=== PATIENT | female | born 1965 | race American Indian/Alaskan Native ===

== ENCOUNTER 2017-09-13 23:25 | Emergency (ER) | payer BC ==
[2017-09-14 00:18] LABS: Basophils % (Auto) 0.7 % (0.0-1.8); Eosinophils # (Auto) 0.2 K/mm3 (0.0-0.4); Eosinophils % (Auto) 4.2 % (0.0-4.3); Hematocrit 40.2 % (30.3-42.9); Hemoglobin 13.8 gm/dl (10.1-14.3); Lymphocytes # (Auto) 1.5 K/mm3 (1.2-5.4); Mean Corpuscular HGB Conc 34 % (30-34); Mean Corpuscular Hemoglobin 30 pg (28-32); Mean Corpuscular Volume 87 fl (79-97); Monocytes # (Auto) 0.5 K/mm3 (0.0-0.8); Monocytes % (Auto) 11.1 % (0.0-7.3); Platelet Count 211 K/mm3 (140-440); Red Blood Count 4.59 M/mm3 (3.65-5.03); Red Cell Distribution Width 13.2 % (13.2-15.2)
[2017-09-14] MEDS ORDERED: BENADRYL IV ONE (00:26)
[2017-09-14] MEDS ORDERED: TORADOL IV ONE (00:27)
[2017-09-14 00:32] LABS: Alanine Aminotransferase 16 units/L (7-56); Albumin 4.3 g/dL (3.9-5); BUN/Creatinine Ratio 15; Blood Urea Nitrogen 15 mg/dL (7-17); Calcium 9.3 mg/dL (8.4-10.2); Hemolysis Index 9
--- NOTE | 2017-09-14 00:33 | Emergency Department Report ---
ED Altered Mental Status HPI - General Chief Complaint: Altered Mental Status Stated Complaint: STROKE SX Time Seen by Provider: 09/14/17 00:08 Source: patient Mode of arrival: Ambulatory Limitations: No Limitations - History of Present Illness Initial Comments: PT. APPARENTLY HAD TAKEN AT 4 PM SOME OXYCODONE AND SHE WAS HALLUCINATING AND SO WAS BROUGHT TO THE ER. HER SAID THE SAME SIMILAR STUFF HAPPENED ABOUT 2-3 YEARS AGO AND WAS DUE TO OXYCODONE.SHE IS BACK TO BASELINE. SHE TOOK THE OXYCONE DUE TO HEADACHE AND SHE SAYS THE HEADACHE IS FRONTAL IN LOCATION , NON RADIATING WITH AGGRAV. WITH NOISE AND LIGHT AND NO RELIEVING FACTOR. PT. SAYS SHE GETS HEADACHE A LOT ALMOST WEEKLY MD Complaint: altered mental status -: Gradual Severity: moderate Consistency of Symptoms: constant Associated Symptoms: denies other symptoms - Related Data Home Medications Medication Instructions Recorded Confirmed Last Taken No Known Home Medications [No 09/13/17 09/13/17 Unknown Reported Home Medications] Allergies Allergy/AdvReac Type Severity Reaction Status Date / Time oxycodone AdvReac Unknown Verified 09/13/17 23:52 ED Review of Systems ROS: Stated complaint: STROKE SX Other details as noted in HPI Comment: All other systems reviewed and negative ED Past Medical Hx - Past Medical History Hx Hypertension: Yes Hx CVA: Yes - Surgical History Past Surgical History?: No - Social History Smoking Status: Never Smoker Substance Use Type: None - Medications Home Medications: Home Medications Medication Instructions Recorded Confirmed Last Taken Type No Known Home Medications [No 09/13/17 09/13/17 Unknown History Reported Home Medications] ED Physical Exam - General Limitations: No Limitations General appearance: alert, in no apparent distress - Head Head exam: Present: atraumatic, normocephalic - Eye Eye exam: Present: normal appearance - ENT ENT exam: Present: mucous membranes moist - Neck Neck exam: Present: normal inspection - Respiratory Respiratory exam: Present: normal lung sounds bilaterally. Absent: respiratory distress - Cardiovascular Cardiovascular Exam: Present: regular rate, normal rhythm. Absent: systolic murmur, diastolic murmur, rubs, gallop - GI/Abdominal GI/Abdominal exam: Present: soft, normal bowel sounds - Rectal Rectal exam: Present: deferred - Extremities Exam Extremities exam: Present: normal inspection - Back Exam Back exam: Present: normal inspection, full ROM - Neurological Exam Neurological exam: Present: alert, oriented X3 - Psychiatric Psychiatric exam: Present: normal affect, normal mood - Skin Skin exam: Present: warm, dry, intact, normal color. Absent: rash ED Course Vital Signs 09/13/17 09/14/17 09/14/17 23:43 00:29 01:11 Temperature 98 F Pulse Rate 87 77 Respiratory 18 16 16 Rate Blood Pressure 190/109 Blood Pressure 171/94 [Right] O2 Sat by Pulse 98 98 100 Oximetry - Reevaluation(s) Reevaluation #1: 09/14/17 01:53 pt. says that are headache is better - Lab Data Result diagrams: 09/13/17 23:56 09/13/17 23:56 Lab Results 09/13/17 09/13/17 09/13/17 Range/Units 23:56 23:56 23:56 WBC 4.9 (4.5-11.0) K/mm3 RBC 4.59 (3.65-5.03) M/mm3 Hgb 13.8 (10.1-14.3) gm/dl Hct 40.2 (30.3-42.9) % MCV 87 (79-97) fl MCH 30 (28-32) pg MCHC 34 (30-34) % RDW 13.2 (13.2-15.2) % Plt Count 211 (140-440) K/mm3 Lymph % (Auto) 31.0 (13.4-35.0) % Moffat % (Auto) 11.1 H (0.0-7.3) % Eos % (Auto) 4.2 (0.0-4.3) % Baso % (Auto) 0.7 (0.0-1.8) % Lymph # 1.5 (1.2-5.4) K/mm3 Moffat # 0.5 (0.0-0.8) K/mm3 Eos # 0.2 (0.0-0.4) K/mm3 Baso # 0.0 (0.0-0.1) K/mm3 Seg Neutrophils % 53.0 (40.0-70.0) % Seg Neutrophils # 2.6 (1.8-7.7) K/mm3 Sodium 139 (137-145) mmol/L Potassium 4.5 (3.6-5.0) mmol/L Chloride 101.1 (98-107) mmol/L Carbon Dioxide 26 (22-30) mmol/L Anion Gap 16 mmol/L BUN 15 (7-17) mg/dL Creatinine 1.0 (0.7-1.2) mg/dL Estimated GFR > 60 ml/min BUN/Creatinine Ratio 15 % Glucose 104 H (65-100) mg/dL POC Glucose (70-105) Calcium 9.3 (8.4-10.2) mg/dL Total Bilirubin 0.30 (0.1-1.2) mg/dL AST 20 (5-40) units/L ALT 16 (7-56) units/L Alkaline Phosphatase 98 (35-129) units/L Total Protein 7.0 (6.3-8.2) g/dL Albumin 4.3 (3.9-5) g/dL Albumin/Globulin Ratio 1.6 % TSH 1.800 (0.270-4.200) mlU/mL Plasma/Serum Alcohol (0-0.07) % 09/13/17 09/14/17 Range/Units 23:56 00:31 WBC (4.5-11.0) K/mm3 RBC (3.65-5.03) M/mm3 Hgb (10.1-14.3) gm/dl Hct (30.3-42.9) % MCV (79-97) fl MCH (28-32) pg MCHC (30-34) % RDW (13.2-15.2) % Plt Count (140-440) K/mm3 Lymph % (Auto) (13.4-35.0) % Moffat % (Auto) (0.0-7.3) % Eos % (Auto) (0.0-4.3) % Baso % (Auto) (0.0-1.8) % Lymph # (1.2-5.4) K/mm3 Moffat # (0.0-0.8) K/mm3 Eos # (0.0-0.4) K/mm3 Baso # (0.0-0.1) K/mm3 Seg Neutrophils % (40.0-70.0) % Seg Neutrophils # (1.8-7.7) K/mm3 Sodium (137-145) mmol/L Potassium (3.6-5.0) mmol/L Chloride (98-107) mmol/L Carbon Dioxide (22-30) mmol/L Anion Gap mmol/L BUN (7-17) mg/dL Creatinine (0.7-1.2) mg/dL Estimated GFR ml/min BUN/Creatinine Ratio % Glucose (65-100) mg/dL POC Glucose 99 (70-105) Calcium (8.4-10.2) mg/dL Total Bilirubin (0.1-1.2) mg/dL AST (5-40) units/L ALT (7-56) units/L Alkaline Phosphatase (35-129) units/L Total Protein (6.3-8.2) g/dL Albumin (3.9-5) g/dL Albumin/Globulin Ratio % TSH (0.270-4.200) mlU/mL Plasma/Serum Alcohol < 0.01 (0-0.07) % - EKG Data -: EKG Interpreted by Me EKG shows normal: sinus rhythm (normal), axis (normal), intervals (normal), QRS complexes (normal), ST-T waves (normal) Rate: normal (rate is 80) - Medical Decision Making Dr Hampton to check ct scan of head result before the patient leaves for home Critical care attestation.: If time is entered above; I have spent that time in minutes in the direct care of this critically ill patient, excluding procedure time. ED Disposition Clinical Impression: Headache, Medication adverse effect Disposition: DC-01 TO HOME OR SELFCARE Is pt being admited?: No Does the pt Need Aspirin: No Condition: Stable Instructions: Narcotic Pain Management (ED), Acute Headache (ED) Additional Instructions: follow up with your PCP about further workup of your headache Referrals: JENNIFER GOMEZ MD [Primary Care Provider] - 3-5 Days Time of Disposition: 01:55 Print Language: CONGOLESE
[2017-09-14] MEDS ORDERED: ATIVAN IV ONE (01:20)
--- NOTE | 2017-09-14 02:26 | Cat Scan Report ---
FINAL REPORT EXAM: CT HEAD/BRAIN WO CON HISTORY: ALTERED MENTAL STATUS TECHNIQUE: Routine axial imaging was obtained of the brain without IV contrast. There are no previous studies available for comparison. FINDINGS: There is a remote cortical infarct in the medial aspect of the left frontal lobe. There is no evidence of acute stroke or hemorrhage. The ventricular system is appropriate in size and is symmetric. The basal cisterns appear normal. The visualized sinuses are clear. The mastoid air cells are well pneumatized. The calvarium appears intact. 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 No evidence of acute stroke or hemorrhage.
[2017-09-14 02:39] LABS: Bilirubin,Urine NEG (Negative); Color,Urine Red (Yellow)
[2017-09-14 02:40] LABS: Blood,Urine NEG (Negative); Protein,Urine <15 mg/dL mg/dL (Negative); Urobilinogen,Urine < 2.0 mg/dL (<2.0)
[2017-09-14 02:44] LABS: Amphetamine Screen,Urine PRESUMPTIVE NEGATIVE; Benzodiazepines Screen,Urine PRESUMPTIVE NEGATIVE; Cannabinoid Screen,Urine PRESUMPTIVE NEGATIVE; Cocaine Screen,Urine PRESUMPTIVE NEGATIVE; Methadone Screen,Urine PRESUMPTIVE NEGATIVE; Opiate Screen,Urine PRESUMPTIVE NEGATIVE
[2017-09-14 03:20] VITALS: BP 135/81
== END 2017-09-14 03:19 | disposition home or self-care (01) ==
LOC: ED 23:25
DX: I10 Essential (primary) hypertension (principal); T50.905A Adverse effect of unspecified drugs, medicaments and biological substances, initial encounter; Y92.89 Other specified places as the place of occurrence of the external cause; R51 Headache
CPT/HCPCS: 36415; 70450; 80053; 80307; 81001; 82962; 84443; 85025; 93005; 93010; 96374; 96375; 99284; G0480; J1200; J1885; J2060; J2920; 80320